=== PATIENT | male | born 2000 | race African-American/Black ===

== ENCOUNTER 2022-08-14 02:55 | Emergency (ER) | payer BC ==
[2022-08-14] MEDS ORDERED: Tetracaine HCl/PF 0.5% 4 ML Bottle EYEBOTH ONE (03:16)
[2022-08-14] MEDS ORDERED: Ibuprofen 600 MG Tab PO ONE (03:16)
[2022-08-14] MEDS ORDERED: Gentamicin 0.3% Ophth Soln 5 ML Bottle ONE (03:24)
[2022-08-14] MEDS ORDERED: Gentamicin 0.3% Ophth Soln 5 ML Bottle EYEBOTH SCH (06:00)
== END 2022-08-14 03:32 | disposition home or self-care (01) ==
LOC: MW.ED 02:55
DX: H16.133 Photokeratitis, bilateral (principal)
CPT/HCPCS: 99283; A9270; J3490

== ENCOUNTER 2024-07-05 15:14 | Emergency (ER) | payer SELFPAY | END 2024-07-05 17:29 | disposition home or self-care (01) | LOC: MW.ED 15:14 | DX: J02.9 Acute pharyngitis, unspecified (principal); Z75.8 Other problems related to medical facilities and other health care | CPT/HCPCS: 87428-QW; 87651-QW; 99283 ==

== ENCOUNTER 2024-10-29 19:12 | Emergency (ER) | payer BC ==
[2024-10-29 19:44] LABS: APPEARANCE,URINE CLEAR; BILIRUBIN,URINE NEGATIVE (NEGATIVE); COLOR,URINE YELLOW; GLUCOSE,URINE NEGATIVE (NEGATIVE); KETONES,URINE NEGATIVE (NEGATIVE); LEUKOCYTE ESTERASE,URINE NEGATIVE (NEGATIVE); NITRITE,URINE NEGATIVE (NEGATIVE); OCCULT BLOOD,URINE NEGATIVE (NEGATIVE); PROTEIN,URINE NEGATIVE (NEGATIVE); UROBILINOGEN,URINE 0.2 EU/dL (<2.0)
[2024-10-29] MEDS: cefTRIAXone 500 MG in Lidocaine 1% 1 ML IM ONE (21:18)
[2024-10-29 21:35] LABS: C. TRACHOMATIS BY PCR NOT DETECTED; N. GONORRHOEAE BY PCR NOT DETECTED
== END 2024-10-29 21:23 | disposition home or self-care (01) ==
LOC: MW.ED 19:12
DX: N50.811 Right testicular pain (principal); Z79.899 Other long term (current) drug therapy
CPT/HCPCS: 76870; 81003; 87491; 87591; 93976; 96372; 99284; J0696; J2003

== ENCOUNTER 2025-06-21 23:09 | Emergency (ER) | payer SELFPAY ==
[2025-06-22 00:04] LABS: APPEARANCE,URINE CLEAR; GLUCOSE,URINE NEGATIVE (NEGATIVE); OCCULT BLOOD,URINE NEGATIVE (NEGATIVE)
[2025-06-22 01:27] LABS: AMPHETAMINES SCREEN, URINE NEGATIVE (CUTOFF=500); BUPRENORPHINE SCREEN,URINE NEGATIVE (CUTOFF=10); METHADONE SCREEN, URINE NEGATIVE (CUTOFF=200); METHAMPHETAMINES SCREEN, URINE NEGATIVE (CUTOFF=500); OXYCODONE SCREEN,URINE NEGATIVE (CUT0FF=100); PCP SCREEN,URINE NEGATIVE (CUTOFF=25); THC SCREEN,URINE 20 NG/ML NEGATIVE (CUTOFF=50)
[2025-06-22 01:50] LABS: C. TRACHOMATIS BY PCR DETECTED; N. GONORRHOEAE BY PCR NOT DETECTED
== END 2025-06-22 01:00 | disposition home or self-care (01) ==
LOC: MW.ED 23:09
DX: A64 Unspecified sexually transmitted disease (principal)
CPT/HCPCS: 80305; 81003; 87491; 87591; 96372; 99283; A9270; J0696; J2003